=== PATIENT | male | born 1995 | race Caucasian/White ===

== ENCOUNTER 2021-04-08 01:26 | Emergency (ER) | payer OTHER, MEDICAID ==
[~2021-04-08] VITALS: Ht 177.8 cm; Wt 68.9 kg
[2021-04-08 01:33] VITALS: BP_SYST 148
--- NOTE | 2021-04-08 01:33 | NUR ---
Patient to ER bed 07 for evaluation.
--- NOTE | 2021-04-08 01:36 | NUR ---
PATIENT BROUGHT IN CUSTODY WITH [facility]S DEPUTIES FOR MEDICAL CLEARANCE. PATIENT VOICED NO COMPLAINTS. DENIES ANY PAIN
--- NOTE | 2021-04-08 01:48 | NUR ---
Seen and examined by Dr. Mosquera
--- NOTE | 2021-04-08 01:52 | NUR ---
abrasions at bilateral knee cleanse with saline and betadine, open to air dressing.
[2021-04-08] MEDS ORDERED: IBUPROFEN 600 MG TABLET ONE (02:09)
[2021-04-08 02:15] VITALS: BP_SYST 148
[2021-04-08] MEDS ORDERED: IBUPROFEN 600 MG TABLET PO ONE (02:15)
--- NOTE | 2021-04-08 02:15 | NUR ---
Patient given written and verbal discharge instructions and verbalizes understanding. ER MD discussed with patient the results and treatment provided. Patient in stable condition. ID arm band removed. no Rx of given. Patient educated to follow up with PMD. Pain Scale 0/10. Opportunity for questions provided and answered.
== END 2021-04-08 02:15 ==
LOC: SED 01:26
DX: S00.81XA Abrasion of other part of head, initial encounter (principal); S80.211A Abrasion, right knee, initial encounter; S80.212A Abrasion, left knee, initial encounter; V49.49XA Driver injured in collision with other motor vehicles in traffic accident, initial encounter; Y93.89 Activity, other specified; Y92.89 Other specified places as the place of occurrence of the external cause; Y99.8 Other external cause status
CPT/HCPCS: 99283